=== PATIENT | female | born 1945 | race Caucasian/White ===

== ENCOUNTER 2018-12-05 11:23 | Inpatient (IN) ==
[2018-12-05] MEDS ORDERED: SODIUM CHLORIDE 0.9% 1000ML 2,000 ML IV ONE (11:40)
[2018-12-05] MEDS ORDERED: PIPERACILL/TAZOBAC CONSULT ACTIVE PRN (11:40)
--- NOTE | 2018-12-05 12:11 | XRay Report ---
XR chest 1V portable CLINICAL HISTORY: Sepsis dyspnea COMPARISON STUDY: 11/17/2018 FINDINGS: Developing infiltrate right base combined with a small effusion. Patchy parenchymal infiltr ates left midlung as well as right perihilar region. IMPRESSION: Diffuse bilateral parenchymal infiltrative change. The above report was generated using voice recognition software. It may contain grammatical, syntax or spelling errors. Electronically signed by: Almas Valdez M.D. 12/05/2018 12:09 PM
[2018-12-05 12:30] LABS: Hematocrit (blood only) 31.4 % (37-47); Hemoglobin 10.3 g/dL (12.0-16.0); Mean Corpuscular Hgb Conc 32.8 g/dL (32-36); Mean Corpuscular Volume 86.7 fL (80-100); Nucleated RBC # (auto) 0.26 K/uL (0-0); Nucleated RBC % (auto) 2.8 %; Platelet Count 479 K/uL (130-400); RDW Coefficient of Variation 17.1 % (11.5-14.5); RDW Standard Deviation 53.9 fL (36.4-46.3); Red Blood Count 3.62 M/uL (4.2-5.4)
[2018-12-05 12:47] LABS: Albumin Level 1.9 gm/dl (3.4-5.0); BUN Creatinine Ratio 32.8 (10-20); Calcium 8.8 mg/dl (8.5-10.1); Creatinine Clr Calc Pharmacy 56.8 ml/min; Est GFR (African American) 94.7; Est GFR (Non-African American) 81.7; Potassium 4.8 mmol/L (3.5-5.1)
[2018-12-05] MEDS: PIPERACILLIN/TAZOBACTAM 4.5 GM/120 ML BAG IV ONE ×2 (12:48→12:53)
[2018-12-05 12:50] LABS: Albumin Globulin Ratio 0.4 (0.9-2); Bilirubin,Total 0.4 mg/dl (0.2-1); Globulin 4.5 gm/dl (2.5-4.0); INR 1.2 (0.9-1.1); Partial Thromboplastin Ratio 1.2; Partial Thromboplastin Time 30.9 Seconds (21.0-31.0); Prothrombin Time 11.8 Seconds (9.0-12.0); Total Protein 6.4 gm/dl (6.4-8.2)
[2018-12-05] MEDS ORDERED: CEFEPIME 1,000 MG in SYRINGE 0 ML IV STA (12:53)
[2018-12-05] MEDS: LEVOFLOXACIN/D5W 750 MG/150 ML BAG IV SCH (12:56)
[2018-12-05 12:58] LABS: Basophils # (auto) 0.02 K/uL (0-0.2); Basophils % (auto) 0.2 %; Eosinophils # (auto) 0.03 K/uL (0-0.5); Eosinophils % (auto) 0.3 %; Howell-Jolly Bodies 1+; Immature Granulocytes # (auto) 0.11 K/uL (0.00-0.02); Immature Granulocytes % (auto) 1.2 %; Lymphocytes # (auto) 0.87 K/uL (1.2-3.4); Lymphocytes % (auto) 9.2 %; Monocytes # (auto) 0.08 K/uL (0.11-0.59); Monocytes % (auto) 0.8 %; Neutrophils # (auto) 8.39 K/uL (1.4-6.5); Neutrophils % (auto) 88.3 %
[2018-12-05] MEDS ORDERED: VANCOMYCIN HCL 1,250 MG in SODIUM CHLORIDE 0.9% 500 ML IV ONE (13:15)
[2018-12-05] MEDS ORDERED: VANCOMYCIN CONSULT ACTIVE PRN (13:15)
[2018-12-05] MEDS ORDERED: ACETAMINOPHEN 500 MG TAB PO STA (13:16)
[2018-12-05] MEDS ORDERED: SODIUM CHLORIDE 0.9% 1000ML 1,000 ML IV ONE (13:28)
[2018-12-05] MEDS ORDERED: IOVERSOL 100ml IV PRN (13:43)
--- NOTE | 2018-12-05 13:49 | CT Scan Report ---
CT head/brain wo con CT DOSE: HISTORY: Altered mental status AMS TECHNIQUE: Multiaxial CT images of the head were performed without the use of intravenous contrast. A dose lowering technique was utilized adhering to the principles of ALARA. Comparison: 11/17/2018 Findings: Moderate mucosal thickening left mastoid air cells. Old left occipital infarct. Hyperdensit y within the sulci felt to represent chronic calcification. No new or interval finding. Age-related atrophy and chronic small vessel change. Impression: 1. 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 2. Age-related atrophy and chronic small vessel change. 3. No acute process. 4. Partial opacification left mastoid air cells unchanged from the prior study. The above report was generated using voice recognition software. It may contain grammatical, syntax or spelling errors. Electronically signed by: Almas Valdez M.D. 12/05/2018 1:48 PM
--- NOTE | 2018-12-05 13:53 | CT Scan Report ---
CT angio chest PE protocol CT DOSE: 889.00 mGy.cm HISTORY: Chest pain +dd and cp TECHNIQUE: Multiaxial CT images of the chest were performed following the intravenous administration of contrast to evaluate the pulmonary arteries. Maximal intensity projection images were also obtaine d. A dose lowering technique was utilized adhering to the principles of ALARA. COMPARISON STUDY: None. FINDINGS: Study is positive for bilateral pulmonary emboli. No evidence for a major central or saddle embolus. Right pleural effusion. Diffuse bilateral parenchymal infiltrative change. IMPRESSION: 1. Study is positive for diffuse bilateral pulmonary emboli. 2. No evidence for a major central pulmonary embolus 3. Right pleural effusion. 4. Bilateral diffuse parenchymal infiltrates. The above report was generated using voice recognition software. It may contain grammatical, syntax or spelling errors. Electronically signed by: Almas Valdez M.D. 12/05/2018 1:52 PM
[2018-12-05] MEDS ORDERED: ACETAMINOPHEN 1000 MG/100 ML IV IV ONE (14:02)
[2018-12-05] MEDS ORDERED: metroNIDAZOLE 500 MG/100 ML BAG IV STA (14:24)
--- NOTE | 2018-12-05 15:14 | History & Physical Report ---
Date of Service December 05, 2018 Assessment & Plan (1) Septic shock: Metabolic Encephaloapthy: Likely multifactorial-- Hypoxia, Sepsis, brain mets, Hyponatremia Hypoxia Acute Diffuse B/L pulmonary Emboli B/L diffuse parenchymal infiltrates Right Pleural effusion --CTA: Study is positive for diffuse bilateral pulmonary emboli. No evidence for a major central pulmonary embolus Right pleural effusion. Bilateral diffuse parenchymal infiltrates. 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 Age -related atrophy and chronic small vessel change. No acute process. Partial opacification left mastoid air cells unchanged from the prior study. --lactate levels:3.9 --received IV fluids, Abx in ED --Given H/O Metastatic Ovarian Cancer, recent H/O bowel perforation likely 2/2 mets and intra cranial hemorrhage, discussed in detail with patient's POA/ family and patient. 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 S/P debulking surgery, chemo radiation therapy in 2012 with recurrence in 2018 in the abdominal lymph nodes, S/P Splenectomy, brain metastasis noted in August 21, 2018 --H/O gastric perforation --Patient and family not planning to consider any chemotherapy and are considering Hospice services (Also confirmed on outpatient records) DM II Severe malnutrition Dyslipidemia HTN Hyponatremia Continue home meds as able Code Status: DNI/DNR Disposition: To be determined Palliative care/financial services agent consulted History of Present Illness Chief Complaint: Shortness of Breath Primary Care Provider: Erikjackelyn Delfin Patient is a 73 yr female with complex medication history-- PMH of metastatic ovarian cancer 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 She was also noted to have left cerebellar and parietal lesions with petechial hemorrhages for which she has completed dexamethasone course. Due to gastric perforation and concern for metastatic because she was thought to be not a candidate for chemotherapy in the near future and was discharged to rehab facility. Patient presents from rehab facility with complaints of worsening shortness of breath, tachycardia, fever and was found to be Hypoxic. While in ED patient was found to be hypoxic in 80s and was started on 6 liters of nasal cannula. Patient was also found to be hypotensive with SBP in 70s, tachycardic, tachypnic, lactate level of 3.9, hyponatremic-129, febrile. CTA showed findings suggestive of diffuse bilateral pulmonary emboli, right pleural effusion, bilateral diffuse parenchymal infiltrates. History is limited secondary to patient's mental status. She is alert, awake but oriented to person only. Discussed in detail with patient and patient's family-- POA, Patient's Son about patient's condition. Patient and her family expressed that she would not want any aggressive measures/ treatment and be kept comfortable only. Patient denies any chest pain, dyspnea, abdominal pain when questioned but reports being tired and felt shaky earlier. Allergies Allergy/AdvReac Type Severity Reaction Status Date / Time amoxicillin Allergy Unknown Unverified 12/05/18 12:16 atenolol Allergy Unknown Unverified 12/05/18 12:16 atorvastatin [From Lipitor] Allergy Unknown Unverified 12/05/18 12:16 fenofibrate Allergy Unknown Unverified 12/05/18 12:16 gemfibrozil Allergy Unknown Unverified 12/05/18 12:16 niacin Allergy Unknown Unverified 12/05/18 12:16 [From Niaspan Extended-Release] simvastatin Allergy Unknown Unverified 12/05/18 12:16 Namxihj-Ngn-Lgm Reductase AdvReac Lani Verified 10/25/18 09:34 Inhibitor Cramps Home Medications Home Medications Medication Instructions Recorded Confirmed Type aspirin [Aspir-81] 81 mg PO QAM 10/25/18 11/17/18 History lisinopril 20 mg PO QAM 10/25/18 11/17/18 History magnesium 250 mg PO QAM 10/25/18 11/17/18 History metformin 1,000 mg PO DAILY 10/25/18 11/17/18 History multivitamin 1 cap PO QAM 10/25/18 11/17/18 History spironolactone 25 mg PO QAM 10/25/18 11/17/18 History acetaminophen [Pain Reliever] 1,000 mg PO 11/17/18 History cyanocobalamin (vitamin B-12) 500 mcg PO DAILY 11/17/18 11/17/18 History [Vitamin B-12] oxycodone 5 mg PO PRN 11/17/18 History Past Med/Surg History Medical History Hyperlipidemia Hypertension Diabetes mellitus, type 2 Cancer ovarian cancer 2012 - chemo spleen cancer 2017 - chemo at present- chemo is on hold till arm is fixed. last chemo 09/21/2018 spots on brain - 09/2018 started radiation in [place] last radiation 2017 - still waiting to hear from [place]. 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 and had exploratory lap then spleen was removed 2017, then started chemo again History of total abdominal hysterectomy and bilateral salpingo-oophorectomy History of vascular access device left infusaport Hx of colonoscopy Social History marital status: Current Living Situation: Personal Care Facility Other Information That Helps Us Care for You: No Feels Safe at Home: Yes Safety Concerns: Feels Safe At This Time Smoking Status: Never smoker Do You Dip or Chew Tobacco: No Second Hand Exposure: No Tobacco Cessation Education Requested by Patient: No Hx Alcohol Use: No Hx Substance Use: No Beliefs That Will Affect Care: None Preferred Language: Kiswahili Communication Ability: Effective Labor Employment Associate Required: No Review of Systems All systems reviewed & are unremarkable except as noted in HPI & below Physical Exam 2 Vital Signs (Past 24 Hours): Last Vital Signs Temp 39.7 C H 12/05/18 13:05 Pulse 139 H 12/05/18 14:31 Resp 27 H 12/05/18 14:31 BP 108/56 L 12/05/18 14:31 Pulse Ox 97 12/05/18 14:31 Physical Exam: Physical Exam: Vitals signs as noted above General Appearance:Moderately built, no apparent distress, Ill appearing Head: normocephalic, Atraumatic Eyes: normal inspection, EOMI Neck: supple, Trachea midline Respiratory/Chest: Decreased breath sounds at bases, No accessory muscle use Cardiovascular: S1, S2, No murmur, +Tachycardia Abdomen/GI:Soft, Non tender, Bowel sounds present Extremities/Musculoskelatal:normal inspection, no edema Neurologic/Psych:Alert Awake and oriented to person only, grossly no focal neurological deficits, follows simple commands Skin: normal color, warm, Skin tear on left shoulder Results & Data Laboratory Results Short CBC 12/05/18 Range/Units 12:24 WBC 9.50 (4.8-10.8) K/uL Hgb 10.3 L (12.0-16.0) g/dL Hct 31.4 L (37-47) % Plt Count 479 H (130-400) K/uL BMP 12/05/18 12:24 Sodium 129 L Potassium 4.8 Chloride 99 Carbon Dioxide 23 BUN 24 H Creatinine 0.73 Glucose 150 H Calcium 8.8 Cardiac Enzymes 12/05/18 Range/Units 12:24 Troponin I < 0.015 (0-0.045) ng/ml Liver Function 12/05/18 Range/Units 12:24 Total Bilirubin 0.4 (0.2-1) mg/dl AST 18 (15-37) U/L ALT 19 (12-78) U/L Alkaline Phosphatase 83 (45-117) U/L Albumin 1.9 L (3.4-5.0) gm/dl Diagnostic Findings CT head: 1. 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 2. Age-related atrophy and chronic small vessel change. 3. No acute process. 4. Partial opacification left mastoid air cells unchanged from the prior study. CXR: 1. Study is positive for diffuse bilateral pulmonary emboli. 2. No evidence for a major central pulmonary embolus 3. Right pleural effusion. 4. Bilateral diffuse parenchymal infiltrates. Medications Administered Home Medications Medication Instructions Recorded Confirmed aspirin [Aspir-81] 81 mg PO QAM 10/25/18 11/17/18 lisinopril 20 mg PO QAM 10/25/18 11/17/18 magnesium 250 mg PO QAM 10/25/18 11/17/18 metformin 1,000 mg PO DAILY 10/25/18 11/17/18 multivitamin 1 cap PO QAM 10/25/18 11/17/18 spironolactone 25 mg PO QAM 10/25/18 11/17/18 acetaminophen [Pain Reliever] 1,000 mg PO 11/17/18 cyanocobalamin (vitamin B-12) 500 mcg PO DAILY 11/17/18 11/17/18 [Vitamin B-12] oxycodone 5 mg PO PRN 11/17/18 ECG Additional Comments: EKG: Sinus Rhythm, Premature ventricular complexes, Non specific ST changes
--- NOTE | 2018-12-05 16:44 | Emergency Department Note ---
Entered by Korina Shaver acting as a scribe for Lake Gagnon DO History of Present Illness General Chief complaint: Shortness of Breath/Dyspnea Stated complaint: sob Source: patient and RN notes reviewed Mode of arrival: EMS Limitations: no limitations History of Present Illness Onset (ago): hour(s) 1 Radiation: non-radiation Pain Consistency: + constant Relieved By: + none Exacerbated By: + none Associated symptoms: + weakness and + other (-abdominal pain, +diarrhea) Treatments prior to arrival: other (Oxygen) The patient is a 73 year old female who presents to the Emergency Room with complaints of a persistent fever. She was brought to the ED via EMS from [facility] where she resides. Nursing states she was 70% on room air at [facility], and it took 6L to get her above 90% on NC. The patient denies any shortness of breath or cough. She states "I just feel tired". She reports she developed diarrhea a few days ago and has felt unwell since then. 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 She denies any abdominal pain. She notes she started shaking earlier today with feeling cold. Home Medications Home Medications Medication Instructions Recorded Confirmed Type aspirin [Aspir-81] 81 mg PO QAM 10/25/18 11/17/18 History lisinopril 20 mg PO QAM 10/25/18 11/17/18 History magnesium 250 mg PO QAM 10/25/18 11/17/18 History metformin 1,000 mg PO DAILY 10/25/18 11/17/18 History multivitamin 1 cap PO QAM 10/25/18 11/17/18 History spironolactone 25 mg PO QAM 10/25/18 11/17/18 History acetaminophen [Pain Reliever] 1,000 mg PO 11/17/18 History cyanocobalamin (vitamin B-12) 500 mcg PO DAILY 11/17/18 11/17/18 History [Vitamin B-12] oxycodone 5 mg PO PRN 11/17/18 History Allergies Allergy/AdvReac Type Severity Reaction Status Date / Time amoxicillin Allergy Unknown Unverified 12/05/18 12:16 atenolol Allergy Unknown Unverified 12/05/18 12:16 atorvastatin [From Lipitor] Allergy Unknown Unverified 12/05/18 12:16 fenofibrate Allergy Unknown Unverified 12/05/18 12:16 gemfibrozil Allergy Unknown Unverified 12/05/18 12:16 niacin Allergy Unknown Unverified 12/05/18 12:16 [From Niaspan Extended-Release] simvastatin Allergy Unknown Unverified 12/05/18 12:16 Aylaifn-Ban-Ikt Reductase AdvReac [place] Verified 10/25/18 09:34 Inhibitor Cramps Past Med/Surg History Medical History Hyperlipidemia Hypertension Diabetes mellitus, type 2 Cancer ovarian cancer 2012 - chemo 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 last chemo 09/21/2018 spots on brain - 09/2018 started radiation in [place] last radiation 2017 - still waiting to hear from [place]. 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 and had exploratory lap then spleen was removed 2017, then started chemo again History of total abdominal hysterectomy and bilateral salpingo-oophorectomy History of vascular access device left infusaport Hx of colonoscopy Social History marital status: Current Living Situation: Personal Care Facility Other Information That Helps Us Care for You: No Feels Safe at Home: Yes Safety Concerns: Feels Safe At This Time Smoking Status: Never smoker Do You Dip or Chew Tobacco: No Second Hand Exposure: No Tobacco Cessation Education Requested by Patient: No Hx Alcohol Use: No Hx Substance Use: No Beliefs That Will Affect Care: None Preferred Language: Kinyarwanda Communication Ability: Effective Mica Plate Layer Required: No Review of Systems See HPI for pertinent positives & negatives. and A total of 10 systems reviewed and were otherwise negative Physical Exam Vital Signs Vital Signs - 24 hr 12/05/18 11:27 12/05/18 11:31 12/05/18 11:32 Temperature Temperature Source Sepsis Recent Fever Within 48 Hours Sepsis New/Unexplained Change in Mental Status Sepsis Action Taken by Nursing Pulse Rate 153 H 153 H 154 H Pulse Rate [Finger] Pulse Rhythm [Finger] Pulse Strength [Finger] Respiratory Rate 21 30 H 25 H Respiratory Effort / Characteristics Respiratory Depth Respiratory Pattern Blood Pressure 136/75 150/83 H Blood Pressure [Left Arm] Blood Pressure Mean 95 105 Blood Pressure Mean [Left Arm] Blood Pressure Position [Left Arm] Pulse Oximetry 90 91 92 Oxygen Delivery Method Oxygen Flow Rate 12/05/18 11:34 12/05/18 11:40 12/05/18 11:50 Temperature 36.7 C Temperature Source Oral Sepsis Recent Fever Within 48 Hours Yes Sepsis New/Unexplained Change in Mental Status Yes Sepsis Action Taken by Nursing Physician Notified Pulse Rate 151 H 153 H 154 H Pulse Rate [Finger] 151 H Pulse Rhythm [Finger] Pulse Strength [Finger] Respiratory Rate 34 H 28 H 31 H Respiratory Effort / Characteristics Accessory Muscle Use Labored Respiratory Depth Normal Respiratory Pattern Regular Blood Pressure 150/83 H Blood Pressure [Left Arm] 150/83 H Blood Pressure Mean 105 Blood Pressure Mean [Left Arm] 105 Blood Pressure Position [Left Arm] Pulse Oximetry 82 L 92 94 Oxygen Delivery Method Room Air Oxygen Flow Rate 12/05/18 11:51 12/05/18 12:00 12/05/18 12:01 Temperature Temperature Source Sepsis Recent Fever Within 48 Hours Sepsis New/Unexplained Change in Mental Status Sepsis Action Taken by Nursing Pulse Rate 154 H 153 H Pulse Rate [Finger] Pulse Rhythm [Finger] Pulse Strength [Finger] Respiratory Rate 25 H 33 H Respiratory Effort / Characteristics Respiratory Depth Respiratory Pattern Blood Pressure 113/62 Blood Pressure [Left Arm] Blood Pressure Mean 79 Blood Pressure Mean [Left Arm] Blood Pressure Position [Left Arm] Pulse Oximetry 95 94 93 Oxygen Delivery Method Nasal Cannula Nasal Cannula Oxygen Flow Rate 6 5 12/05/18 12:10 12/05/18 12:20 12/05/18 12:30 Temperature Temperature Source Sepsis Recent Fever Within 48 Hours Sepsis New/Unexplained Change in Mental Status Sepsis Action Taken by Nursing Pulse Rate 147 H 144 H 146 H Pulse Rate [Finger] Pulse Rhythm [Finger] Pulse Strength [Finger] Respiratory Rate 33 H 31 H 33 H Respiratory Effort / Characteristics Respiratory Depth Respiratory Pattern Blood Pressure Blood Pressure [Left Arm] Blood Pressure Mean Blood Pressure Mean [Left Arm] Blood Pressure Position [Left Arm] Pulse Oximetry 96 96 96 Oxygen Delivery Method Nasal Cannula Nasal Cannula Oxygen Flow Rate 5 5 12/05/18 12:40 12/05/18 12:45 12/05/18 12:49 Temperature Temperature Source Sepsis Recent Fever Within 48 Hours Sepsis New/Unexplained Change in Mental Status Sepsis Action Taken by Nursing Pulse Rate 147 H Pulse Rate [Finger] 143 H Pulse Rhythm [Finger] Pulse Strength [Finger] Respiratory Rate 31 H 32 H Respiratory Effort / Characteristics Spontaneous SOB on Exertion Respiratory Depth Normal Respiratory Pattern Regular Blood Pressure Blood Pressure [Left Arm] 93/59 L Blood Pressure Mean Blood Pressure Mean [Left Arm] 70 Blood Pressure Position [Left Arm] Pulse Oximetry 95 96 Oxygen Delivery Method Nasal Cannula Nasal Cannula Oxygen Flow Rate 6 6 12/05/18 12:50 12/05/18 12:51 12/05/18 12:59 Temperature Temperature Source Sepsis Recent Fever Within 48 Hours Sepsis New/Unexplained Change in Mental Status Sepsis Action Taken by Nursing Pulse Rate 144 H 145 H 142 H Pulse Rate [Finger] Pulse Rhythm [Finger] Pulse Strength [Finger] Respiratory Rate 31 H 29 H 33 H Respiratory Effort / Characteristics Respiratory Depth Respiratory Pattern Blood Pressure 93/59 L 99/61 L Blood Pressure [Left Arm] Blood Pressure Mean 70 73 Blood Pressure Mean [Left Arm] Blood Pressure Position [Left Arm] Pulse Oximetry 96 96 96 Oxygen Delivery Method Nasal Cannula Oxygen Flow Rate 6 12/05/18 13:00 12/05/18 13:02 12/05/18 13:05 Temperature 39.7 C H Temperature Source Rectal Sepsis Recent Fever Within 48 Hours Sepsis New/Unexplained Change in Mental Status Sepsis Action Taken by Nursing Pulse Rate 143 H 143 H Pulse Rate [Finger] Pulse Rhythm [Finger] Pulse Strength [Finger] Respiratory Rate 36 H 30 H Respiratory Effort / Characteristics Respiratory Depth Respiratory Pattern Blood Pressure 96/58 L Blood Pressure [Left Arm] Blood Pressure Mean 70 Blood Pressure Mean [Left Arm] Blood Pressure Position [Left Arm] Pulse Oximetry 97 96 Oxygen Delivery Method Nasal Cannula Oxygen Flow Rate 5 12/05/18 13:10 12/05/18 13:52 12/05/18 13:53 Temperature Temperature Source Sepsis Recent Fever Within 48 Hours Sepsis New/Unexplained Change in Mental Status Sepsis Action Taken by Nursing Pulse Rate 140 H Pulse Rate [Finger] Pulse Rhythm [Finger] Pulse Strength [Finger] Respiratory Rate 28 H Respiratory Effort / Characteristics Respiratory Depth Respiratory Pattern Blood Pressure 119/68 Blood Pressure [Left Arm] Blood Pressure Mean 85 Blood Pressure Mean [Left Arm] Blood Pressure Position [Left Arm] Pulse Oximetry 94 100 96 Oxygen Delivery Method Nasal Cannula Nasal Cannula Oxygen Flow Rate 5 5 12/05/18 14:00 12/05/18 14:01 12/05/18 14:10 Temperature Temperature Source Sepsis Recent Fever Within 48 Hours Sepsis New/Unexplained Change in Mental Status Sepsis Action Taken by Nursing Pulse Rate 141 H 142 H 140 H Pulse Rate [Finger] Pulse Rhythm [Finger] Pulse Strength [Finger] Respiratory Rate 31 H 30 H 28 H Respiratory Effort / Characteristics Respiratory Depth Respiratory Pattern Blood Pressure 122/65 Blood Pressure [Left Arm] Blood Pressure Mean 84 Blood Pressure Mean [Left Arm] Blood Pressure Position [Left Arm] Pulse Oximetry 98 99 97 Oxygen Delivery Method Nasal Cannula Nasal Cannula Nasal Cannula Oxygen Flow Rate 5 5 5 12/05/18 14:16 12/05/18 14:20 12/05/18 14:30 Temperature Temperature Source Sepsis Recent Fever Within 48 Hours Sepsis New/Unexplained Change in Mental Status Sepsis Action Taken by Nursing Pulse Rate 140 H 140 H 136 H Pulse Rate [Finger] Pulse Rhythm [Finger] Pulse Strength [Finger] Respiratory Rate 28 H 30 H 28 H Respiratory Effort / Characteristics Respiratory Depth Respiratory Pattern Blood Pressure 114/69 Blood Pressure [Left Arm] Blood Pressure Mean 84 Blood Pressure Mean [Left Arm] Blood Pressure Position [Left Arm] Pulse Oximetry 99 96 97 Oxygen Delivery Method Nasal Cannula Nasal Cannula Nasal Cannula Oxygen Flow Rate 5 5 5 12/05/18 14:31 12/05/18 14:32 12/05/18 14:40 Temperature Temperature Source Sepsis Recent Fever Within 48 Hours Sepsis New/Unexplained Change in Mental Status Sepsis Action Taken by Nursing Pulse Rate 139 H 136 H 135 H Pulse Rate [Finger] Pulse Rhythm [Finger] Pulse Strength [Finger] Respiratory Rate 27 H 23 23 Respiratory Effort / Characteristics Respiratory Depth Respiratory Pattern Blood Pressure 108/56 L Blood Pressure [Left Arm] Blood Pressure Mean 73 Blood Pressure Mean [Left Arm] Blood Pressure Position [Left Arm] Pulse Oximetry 97 95 97 Oxygen Delivery Method Nasal Cannula Nasal Cannula Nasal Cannula Oxygen Flow Rate 5 5 5 12/05/18 14:46 12/05/18 14:50 12/05/18 14:52 Temperature Temperature Source Sepsis Recent Fever Within 48 Hours Sepsis New/Unexplained Change in Mental Status Sepsis Action Taken by Nursing Pulse Rate 136 H 142 H 136 H Pulse Rate [Finger] Pulse Rhythm [Finger] Pulse Strength [Finger] Respiratory Rate 30 H 37 H 29 H Respiratory Effort / Characteristics Respiratory Depth Respiratory Pattern Blood Pressure 77/46 L 102/52 L Blood Pressure [Left Arm] Blood Pressure Mean 56 68 Blood Pressure Mean [Left Arm] Blood Pressure Position [Left Arm] Pulse Oximetry 97 91 94 Oxygen Delivery Method Nasal Cannula Nasal Cannula Nasal Cannula Oxygen Flow Rate 5 5 5 12/05/18 15:00 12/05/18 15:01 12/05/18 15:10 Temperature Temperature Source Sepsis Recent Fever Within 48 Hours Sepsis New/Unexplained Change in Mental Status Sepsis Action Taken by Nursing Pulse Rate 133 H 132 H 130 H Pulse Rate [Finger] Pulse Rhythm [Finger] Pulse Strength [Finger] Respiratory Rate 30 H 26 H 25 H Respiratory Effort / Characteristics Respiratory Depth Respiratory Pattern Blood Pressure 81/50 L Blood Pressure [Left Arm] Blood Pressure Mean 60 Blood Pressure Mean [Left Arm] Blood Pressure Position [Left Arm] Pulse Oximetry 95 95 97 Oxygen Delivery Method Nasal Cannula Nasal Cannula Nasal Cannula Oxygen Flow Rate 5 5 5 12/05/18 15:15 12/05/18 15:20 12/05/18 16:20 Temperature Temperature Source Sepsis Recent Fever Within 48 Hours Sepsis New/Unexplained Change in Mental Status Sepsis Action Taken by Nursing Pulse Rate 129 H 128 H Pulse Rate [Finger] 123 H Pulse Rhythm [Finger] Regular Pulse Strength [Finger] Normal Respiratory Rate 23 24 22 Respiratory Effort / Characteristics Non-Labored Spontaneous Respiratory Depth Normal Respiratory Pattern Regular Blood Pressure 84/49 L Blood Pressure [Left Arm] 94/52 L Blood Pressure Mean 60 Blood Pressure Mean [Left Arm] 66 Blood Pressure Position [Left Arm] Sitting Pulse Oximetry 96 95 97 Oxygen Delivery Method Nasal Cannula Nasal Cannula Nasal Cannula Oxygen Flow Rate 5 5 5 12/05/18 16:35 Temperature 37.9 C H Temperature Source Rectal Sepsis Recent Fever Within 48 Hours Sepsis New/Unexplained Change in Mental Status Sepsis Action Taken by Nursing Pulse Rate Pulse Rate [Finger] Pulse Rhythm [Finger] Pulse Strength [Finger] Respiratory Rate Respiratory Effort / Characteristics Respiratory Depth Respiratory Pattern Blood Pressure Blood Pressure [Left Arm] Blood Pressure Mean Blood Pressure Mean [Left Arm] Blood Pressure Position [Left Arm] Pulse Oximetry Oxygen Delivery Method Oxygen Flow Rate GENERAL: Laying in bed, alert, ill-appearing, well nourished, moderate distress , non-toxic, confused EYE EXAM: normal conjunctiva. OROPHARYNX: no exudate, no erythema, lips, buccal mucosa, and tongue normal and mucous membranes are moist NECK: supple, no nuchal rigidity, no adenopathy, non-tender LUNGS: Diminished breath sounds at the bases. Normal chest wall mechanics HEART: no murmurs, S1 normal and S2 normal ABDOMEN: abdomen soft, non-tender, normo-active bowel, sounds, no masses, no rebound or guarding. BACK: Back is symmetrical on inspection and there is no deformity, no midline tenderness, no CVA tenderness. SKIN: no rashes and no bruising UPPER EXTREMITIES: upper extremities are grossly normal. LOWER EXTREMITIES: No pitting edema. NEURO EXAM: Patient is awake, alert and oriented to person but not place or time. She is following commands. Nonfocal. Cranial nerves II-XII grossly intact. Course ED COURSE: Vital signs were reviewed and showed the patient is hypotensive and tachycardic. The patients medical record was reviewed The above diagnostic studies were performed and reviewed. ED treatments and interventions as stated above. 1135: The patient was evaluated in room B3. A complete history and physical examination was performed. 1406: I discussed the patients case with Dr. Winston, ICU. The patient has been accepted to the ICU and will be further evaluated. 1415: [facility] The patient will be further evaluated. 1420: Upon reevaluation, the patient is resting comfortably. I discussed her case with her family and they would like to keep her comfortable and are agreeable with the plan. 1435: The patient is now comfort measures only. 1450: I reevaluated the patient. Her pressure went down to the 70s, HR is in the 40s, no complaints of pain. Based on the patients age, coexisting illnesses, exam and lab findings the decision to treat as an inpatient was made. The patient remained stable while under my care. The patient will be evaluated for further management. Consultations Consultation #1: I discussed the patients case with Dr. Winston, ICU. The patient has been accepted to the ICU and will be further evaluated. Time: 14:06 Consultation #2: [facility] The patient will be further evaluated. Time: 14:15 Administered Medications Levofloxacin/Dextrose (Levaquin/D5w) 750 mg in 150 mls @ 100 mls/hr IV Q24H WAYNE Stop: 12/07/18 12:59 Last Infusion: 12/05/18 14:26 Dose: 0 mls/hr Admin: 12/05/18 12:56 Dose: 100 mls/hr Ioversol (Optiray 320 100ml) 95 ml IV ONCE PRN PRN Reason: Interaction Checking Stop: 12/09/18 13:42 Last Admin: 12/05/18 13:43 Dose: 95 ml Discontinued Medications Acetaminophen (Tylenol) 1,000 mg PO NOW STA Stop: 12/05/18 13:17 Last Admin: 12/05/18 14:23 Dose: Not Given Acetaminophen (Ofirmev) Confirm Administered Dose 1,000 mg IV .STK-MED ONE Stop: 12/05/18 14:03 Last Admin: 12/05/18 14:04 Dose: 1,000 mg Piperacillin Sod/Tazobactam Sod (Zosyn) 4.5 gm in 120 mls @ 240 mls/hr IV NOW ONE Stop: 12/05/18 12:09 Last Admin: 12/05/18 12:53 Dose: Not Given Sodium Chloride (Nss 1000ml) 2,000 mls @ 999 mls/hr IV .Q2H1M ONE Stop: 12/05/18 13:40 Last Infusion: 12/05/18 14:48 Dose: 0 mls/hr Admin: 12/05/18 12:47 Dose: 999 mls/hr Cefepime HCl 1,000 mg/ Syringe 11.3 mls @ 5.5 mls/min IV NOW STA Stop: 12/05/18 12:55 Last Admin: 12/05/18 14:22 Dose: 5.5 mls/min Vancomycin HCl 1,250 mg/ (Sodium Chloride) 525 mls @ 200 mls/hr IV NOW ONE Stop: 12/05/18 15:52 Last Admin: 12/05/18 15:05 Dose: 200 mls/hr Sodium Chloride (Nss 1000ml) 1,000 mls @ 999 mls/hr IV .Q1H1M ONE Stop: 12/05/18 14:28 Last Infusion: 12/05/18 15:23 Dose: 0 mls/hr Admin: 12/05/18 14:22 Dose: 999 mls/hr Medical Decision Making Differential Diagnosis Differential diagnosis includes etiologies such as sepsis, UTI, pneumonia, metabolic, electrolyte abnormalities, cardiac sources, intracerebral event, toxicologic, neurologic, as well as others were entertained. Medical Records Attestation: I reviewed the patient's medical records. Home Medications Current Medication List: was personally reviewed by me Laboratory Data Attestation: I reviewed the patient's lab results. Result diagrams: 12/05/18 12:24 12/05/18 12:24 Lab Results 12/05/18 12/05/18 12/05/18 Range/Units 12:24 12:24 12:24 WBC 9.50 (4.8-10.8) K/uL RBC 3.62 L (4.2-5.4) M/uL Hgb 10.3 L (12.0-16.0) g/dL Hct 31.4 L (37-47) % MCV 86.7 (80-100) fL MCH 28.5 (25-34) pg MCHC 32.8 (32-36) g/dL RDW Std Deviation 53.9 H (36.4-46.3) fL RDW Coeff of Elizabeth 17.1 H (11.5-14.5) % Plt Count 479 H (130-400) K/uL MPV 9.0 (7.4-10.4) fL Immature Gran % (Auto) 1.2 % Neut % (Auto) 88.3 % Lymph % (Auto) 9.2 % Hayes % (Auto) 0.8 % Eos % (Auto) 0.3 % Baso % (Auto) 0.2 % Immature Gran # (Auto) 0.11 H (0.00-0.02) K/uL Neut # (Auto) 8.39 H (1.4-6.5) K/uL Lymph # (Auto) 0.87 L (1.2-3.4) K/uL Hayes # (Auto) 0.08 L (0.11-0.59) K/uL Eos # (Auto) 0.03 (0-0.5) K/uL Baso # (Auto) 0.02 (0-0.2) K/uL Absolute Nucleated RBC 0.26 H (0-0) K/uL Nucleated RBC % (auto) 2.8 % [place] Bodies 1+ Acanthocytes (Spur) 1+ PT 11.8 (9.0-12.0) Seconds INR 1.2 H (0.9-1.1) APTT 30.9 (21.0-31.0) Seconds PTT Ratio 1.2 Sodium 129 L (136-145) mmol/L Potassium 4.8 (3.5-5.1) mmol/L Chloride 99 (98-107) mmol/L Carbon Dioxide 23 (21-32) mmol/L Anion Gap 7.0 (3-11) BUN 24 H (7-18) mg/dl Creatinine 0.73 (0.6-1.2) mg/dl Est Cr Clr Drug Dosing 56.8 ml/min Est GFR ( Amer) 94.7 Est GFR (Non-Af Amer) 81.7 BUN/Creatinine Ratio 32.8 H (10-20) Glucose 150 H (70-99) mg/dl Lactate (0.4-2.0) mmol/L Calcium 8.8 (8.5-10.1) mg/dl Total Bilirubin 0.4 (0.2-1) mg/dl AST 18 (15-37) U/L ALT 19 (12-78) U/L Alkaline Phosphatase 83 (45-117) U/L Troponin I (0-0.045) ng/ml Total Protein 6.4 (6.4-8.2) gm/dl Albumin 1.9 L (3.4-5.0) gm/dl Globulin 4.5 H (2.5-4.0) gm/dl Albumin/Globulin Ratio 0.4 L (0.9-2) Influenza Type A Ag (Neg) Influenza Type B Ag (Neg) 12/05/18 12/05/18 12/05/18 Range/Units 12:24 12:24 14:25 WBC (4.8-10.8) K/uL RBC (4.2-5.4) M/uL Hgb (12.0-16.0) g/dL Hct (37-47) % MCV (80-100) fL MCH (25-34) pg MCHC (32-36) g/dL RDW Std Deviation (36.4-46.3) fL RDW Coeff of Elizabeth (11.5-14.5) % Plt Count (130-400) K/uL MPV (7.4-10.4) fL Immature Gran % (Auto) % Neut % (Auto) % Lymph % (Auto) % Hayes % (Auto) % Eos % (Auto) % Baso % (Auto) % Immature Gran # (Auto) (0.00-0.02) K/uL Neut # (Auto) (1.4-6.5) K/uL Lymph # (Auto) (1.2-3.4) K/uL Hayes # (Auto) (0.11-0.59) K/uL Eos # (Auto) (0-0.5) K/uL Baso # (Auto) (0-0.2) K/uL Absolute Nucleated RBC (0-0) K/uL Nucleated RBC % (auto) % [place] Bodies Acanthocytes (Spur) PT (9.0-12.0) Seconds INR (0.9-1.1) APTT (21.0-31.0) Seconds PTT Ratio Sodium (136-145) mmol/L Potassium (3.5-5.1) mmol/L Chloride (98-107) mmol/L Carbon Dioxide (21-32) mmol/L Anion Gap (3-11) BUN (7-18) mg/dl Creatinine (0.6-1.2) mg/dl Est Cr Clr Drug Dosing ml/min Est GFR ( Amer) Est GFR (Non-Af Amer) BUN/Creatinine Ratio (10-20) Glucose (70-99) mg/dl Lactate 3.9 H* (0.4-2.0) mmol/L Calcium (8.5-10.1) mg/dl Total Bilirubin (0.2-1) mg/dl AST (15-37) U/L ALT (12-78) U/L Alkaline Phosphatase (45-117) U/L Troponin I < 0.015 (0-0.045) ng/ml Total Protein (6.4-8.2) gm/dl Albumin (3.4-5.0) gm/dl Globulin (2.5-4.0) gm/dl Albumin/Globulin Ratio (0.9-2) Influenza Type A Ag Neg for Influ A (Neg) Influenza Type B Ag Neg for Influ B (Neg) Imaging Data Radiologist's Impression: Radiology results as stated below per my review and the radiologist's interpretation: CT head/brain wo con CT DOSE: HISTORY: Altered mental status AMS TECHNIQUE: Multiaxial CT images of the head were performed without the use of intravenous contrast. A dose lowering technique was utilized adhering to the principles of ALARA. Comparison: 11/17/2018 Findings: Moderate mucosal thickening left mastoid air cells. Old left occipital infarct. Hyperdensity within the sulci felt to represent chronic calcification. No new or interval finding. Age-related atrophy and chronic small vessel change. Impression: 1. 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 2. Age-related atrophy and chronic small vessel change. 3. No acute process. 4. Partial opacification left mastoid air cells unchanged from the prior study. The above report was generated using voice recognition software. It may contain grammatical, syntax or spelling errors. Electronically signed by: Almas Valdez M.D. 12/05/2018 1:[address] angio chest PE protocol CT DOSE: 889.00 mGy.cm HISTORY: Chest pain +dd and cp TECHNIQUE: Multiaxial CT images of the chest were performed following the intravenous administration of contrast to evaluate the pulmonary arteries. Maximal intensity projection images were also obtained. A dose lowering technique was utilized adhering to the principles of ALARA. COMPARISON STUDY: None. FINDINGS: Study is positive for bilateral pulmonary emboli. No evidence for a major central or saddle embolus. Right pleural effusion. Diffuse bilateral parenchymal infiltrative change. IMPRESSION: 1. Study is positive for diffuse bilateral pulmonary emboli. 2. No evidence for a major central pulmonary embolus 3. Right pleural effusion. 4. Bilateral diffuse parenchymal infiltrates. The above report was generated using voice recognition software. It may contain grammatical, syntax or spelling errors. Electronically signed by: Almas Valdez M.D. 12/05/2018 1:52 PM XR chest 1V portable CLINICAL HISTORY: Sepsis dyspnea COMPARISON STUDY: 11/17/2018 FINDINGS: Developing infiltrate right base combined with a small effusion. Patchy parenchymal infiltrates left midlung as well as right perihilar region. IMPRESSION: Diffuse bilateral parenchymal infiltrative change. The above report was generated using voice recognition software. It may contain grammatical, syntax or spelling errors. Electronically signed by: Almas Valdez M.D. 12/05/2018 12:09 PM ECG Data Attestation: I personally reviewed and interpreted this ECG as follows: Indication: SOB/dyspnea Rate (beats per minute): 154 Rhythm: sinus tachycardia Findings: + other (normal axis, poor baseline in lateral leads) and + ST depression (anteriorlateral leads) Blood Pressure Blood Pressure Findings: Low blood pressure MDM Narrative Patient is a 73-year-old female with extensive past medical history including metastatic ovarian cancer to the brain, perforated abdomen which is currently being treated by oral antibiotics who presents the ER febrile tachycardic and hypotensive. Heart rate was in the 150s-160s. Systolic blood pressures dropped intermittently into the 80s. She was febrile at 39.3. Sepsis alert was called. Labs were obtained and showed an anemia of 10. INR was normal. BMP was unremarkable. Lactate was elevated at 4. Troponin was negative. CT head was negative. CTA of the chest shows extensive bilateral PEs with pneumonia and a large effusion. Long conversation with the patient's family. Discussed with the hospitalist and assembly repairer. After an extensive discussion the decision with all parties the decision was made to make the patient a DNR/ DNI. Patient received 3-4 L of IV normal saline, IV cefepime, IV Flagyl, IV Levaquin while in the ER prior to becoming a no code and comfort measures. Patient's family was updated bedside. Heart rate did trend down to the 120s. Systolic BPs increased to the 90s. Temperature did decline as well to 37. Impression & Plan Bilateral pulmonary embolism, Septic shock, Perforated viscus Critical Care Time I have personally spent greater than 75 minutes of critical care time in the direct management of this patient. This includes bedside care, interpretation of diagnostic studies, and testing, discussion with consultants, patient, and family members, and other required patient management activities. This 75 minutes is in excess of all separately billable procedures. Critical Care Time: Yes Total Critical Care Time: 75 Discharge Plan Visit Data Chief Complaint: Shortness of Breath/Dyspnea Stated Complaint: sob ED Provider: [place] Discharge Problem: Bilateral pulmonary embolism, Septic shock, Perforated viscus Patient Disposition: Being Evaluated by Hospitalist Forms Stand Alone Forms: My [employer] Prescriptions Prescriptions: No Action metformin 500 mg Tablet 1,000 mg PO DAILY RF: 0 lisinopril 20 mg Tablet 20 mg PO QAM RF: 0 aspirin [Aspir-81] 81 mg Tablet,Delayed Release (Dr/Ec) 81 mg PO QAM RF: 0 spironolactone 25 mg Tablet 25 mg PO QAM RF: 0 magnesium 250 mg Tablet 250 mg PO QAM RF: 0 multivitamin Capsule 1 cap PO QAM RF: 0 cyanocobalamin (vitamin B-12) [Vitamin B-12] 500 mcg Tablet 500 mcg PO DAILY RF: 0 acetaminophen [Pain Reliever] 500 mg tablet 1,000 mg PO RF: 0 oxycodone 5 mg tablet 5 mg PO PRN (Reason: pain) RF: 0 Referrals Referrals: Jaylyn Lenz MD [Primary Care Provider] - The scribe's documentation has been prepared under my direction and personally reviewed by me in its entirety. I confirm that the note above accurately reflects all work, treatment, procedures, and medical decision making performed by me.
[2018-12-05] MEDS ORDERED: POLYETHYLENE (MIRALAX) 17 GM PACK PO PRN (17:28)
[2018-12-05] MEDS ORDERED: LORazepam 1 MG TAB SL PRN (17:28)
[2018-12-05] MEDS ORDERED: MoRPHine SULFATE 5 MG/0.25 ML UDP PO PRN (17:28)
[2018-12-05] MEDS ORDERED: ONDANSETRON INJ 2 MG/ML 2 ML VIAL IV PRN (17:28)
[2018-12-05] MEDS ORDERED: ATROPINE SULFATE 1% OP SOLN 2 ML BTL SL PRN (17:28)
[2018-12-05] MEDS ORDERED: ACETAMINOPHEN 325 MG TAB PO PRN (17:28)
[2018-12-05] MEDS ORDERED: MoRPHine SULFATE 2 MG/ML CARP IV PRN (17:28)
[2018-12-05] MEDS ORDERED: MoRPHine SULFATE 4 MG/ML 1 ML CARP\\VIAL ONE (20:00)
[2018-12-05] MEDS: DRONABINOL 2.5 MG CAP PO SCH (20:22)
[2018-12-05] MEDS ORDERED: OLANZapine 5 MG TABLET PO SCH (21:00)
[2018-12-06] MEDS: DRONABINOL 2.5 MG CAP PO SCH (07:44)
[2018-12-06] MEDS ORDERED: ASPIRIN 81 MG ECTAB PO SCH (09:00)
[2018-12-06] MEDS ORDERED: PANTOprazole 40 MG TAB PO SCH (09:00)
[2018-12-06] MEDS: LEVOFLOXACIN/D5W 750 MG/150 ML BAG IV SCH (12:18)
--- NOTE | 2018-12-06 13:12 | Palliative Care Consultation ---
Date of Consultation December 06, 2018 Assessment & Plan (1) Comfort measures only status: -73 year old female with PMH metastatic ovarian cancer, s/p multiple surgeries and recent gastric perforation, presented with BL diffuse PE from rehab. Patient has been on steady decline, was not well-enough to continue her chemotherapy prior to this event. Was in hospital recently for a month. Family has decided to transition patient to comfort measures only. -Met with patient, her Skip, son Mahin, KEVYN Porter, and granddaughter. Patient is pleasantly confused and unable to make decisions. However, when presented with plan of comfort measures only, patient was in agreement. -Met with family outside of room. They confirmed that at this point, they are aware of patient's poor prognosis and just want her to be comfortable. -No further lab draws, no abx to be given, no further diagnostic testing. -Discussed patient's regular medications, family would like to discontinue them. Only give comfort medications. -Discussed options for SNF with hospice or home with hospice. Family agreeable and would like some time to decide which option is best for the patient and family. Updated case management. -Continue Roxanol 5mg PO/SL Q3h PRN pain or SOB. Discontinue IV morphine. Patient currently has no pain. -Zofran 4mg PO/SL Q4h PRN nausea. -Lorazepam 0.5mg PO/SL Q4h PRN anxiety/agitation. -Patient dislikes oxygen, but felt better when it was decreased to 2LPM instead of 6. Continue oxygen as tolerated for comfort. -Long discussion with family about what to expect, end of life issues, prognosis , etc. -PPS 30%. Subject to change quickly given patietn's tenuous state and acute illness. -Will continue to follow. (2) Bilateral pulmonary embolism: (3) Septic shock: (4) Ovarian cancer: Laterality: unspecified laterality Qualified Code(s): C56.9 - Malignant neoplasm of unspecified ovary Supervising Physician Co-Signing Physician Notes Chart reviewed, patient seen and examined. Collaborated with COREY Esquivel Multiple family members at bedside including patient's . Patient did not respond to voice or touch due to recent dosing of morphine. PE: No acute distress, patient appears comfortable Respirations: Unlabored CV: Tachycardic Neuro: Sedated Agree with above note, assessment and plan as per COREY Esquivel. Plan is for comfort care, monitor patient over the next 24 hours-considering transfer either to [facility] or home under hospice care. Will continue to follow and provide support to family with medical decision making History of Present Illness Reason for Consultation: Goals of care Requesting Physician: Dr. 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 She was also noted to have left cerebellar and parietal lesions with petechial hemorrhages for which she has completed dexamethasone course. Due to gastric perforation and concern for metastatic because she was thought to be not a candidate for chemotherapy in the near future and was discharged to [facility] for rehab. Prior to that, patient was living at home. She presented to the hospital from SNF for increasing SOB, fever, tachycardia, and hypoxia. Upon arrival in ED, pulse ox was in 80s on room air, she was started on oxygen. CTA chest showed diffuse bilateral pulmonary emboli. No evidence for a major central pulmonary embolus, right pleural effusion. Bilateral diffuse parenchymal infiltrates. CT head showed old left occipital infarct with associated chronic calcification. Age-related atrophy and chronic small vessel change. No acute process. Given patient's history of metastatic cancer and intracranial petechial hemorrhages, treatment for PE difficult. Family was all in agreement that they would like to pursue comfort measures only. Palliative care is consulted. Allergies Allergy/AdvReac Type Severity Reaction Status Date / Time amoxicillin Allergy Unknown Unverified 12/05/18 12:16 atenolol Allergy Unknown Unverified 12/05/18 12:16 atorvastatin [From Lipitor] Allergy Unknown Unverified 12/05/18 12:16 fenofibrate Allergy Unknown Unverified 12/05/18 12:16 gemfibrozil Allergy Unknown Unverified 12/05/18 12:16 niacin Allergy Unknown Unverified 12/05/18 12:16 [From Niaspan Extended-Release] simvastatin Allergy Unknown Unverified 12/05/18 12:16 [id number] Reductase AdvReac [place] Verified 10/25/18 09:34 Inhibitor Cramps Home Medications Home Medications Medication Instructions Recorded Confirmed Type aspirin [Aspir-81] 81 mg PO QAM 10/25/18 11/17/18 History lisinopril 20 mg PO QAM 10/25/18 11/17/18 History magnesium 250 mg PO QAM 10/25/18 11/17/18 History metformin 1,000 mg PO DAILY 10/25/18 11/17/18 History multivitamin 1 cap PO QAM 10/25/18 11/17/18 History spironolactone 25 mg PO QAM 10/25/18 11/17/18 History acetaminophen [Pain Reliever] 1,000 mg PO 11/17/18 History cyanocobalamin (vitamin B-12) 500 mcg PO DAILY 11/17/18 11/17/18 History [Vitamin B-12] oxycodone 5 mg PO PRN 11/17/18 History Patient History Medical History Hyperlipidemia Hypertension Diabetes mellitus, type 2 Cancer ovarian cancer 2012 - chemo 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 last chemo 09/21/2018 spots on brain - 09/2018 started radiation in [place] last radiation 2017 - still waiting to hear from [place]. 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 and had exploratory lap then spleen was removed 2017, then started chemo again History of total abdominal hysterectomy and bilateral salpingo-oophorectomy History of vascular access device left infusaport Hx of colonoscopy Social History marital status: Current Living Situation: Personal Care Facility Other Information That Helps Us Care for You: No Feels Safe at Home: Yes Safety Concerns: Feels Safe At This Time Smoking Status: Never smoker Do You Dip or Chew Tobacco: No Second Hand Exposure: No Tobacco Cessation Education Requested by Patient: No Hx Alcohol Use: No Hx Substance Use: No Beliefs That Will Affect Care: None Preferred Language: Ugandan Communication Ability: Effective Campaign Advisor Required: No Review of Systems Constitutional: no fever and no chills Ear, Nose, Mouth, Throat: no sore throat and no dysphagia Respiratory: no cough and no dyspnea Cardiovascular: no chest pain and no edema Gastrointestinal: + abdominal pain (occasionally, but not at this time); no nausea and no vomiting Neurologic: + confusion (reported by family); no headache(s) Psychiatric: no anxiety Physical Exam 2 Vital Signs (Past 24 Hours): Last Vital Signs Temp 36.2 C L 12/06/18 09:37 Pulse 125 H 12/06/18 11:14 Resp 18 12/06/18 11:14 BP 104/60 12/06/18 11:14 Pulse Ox 91 12/06/18 11:14 Constitutional: + ill appearing (chronically) and comfortable; no acute distress Eyes: PERRL ENMT: Ears: no hearing impairment Neck: normal visual inspection and trachea midline Respiratory: normal respiratory effort, lungs clear to auscultation Auscultation: + diminished lung sounds Cardiovascular: Rate/Rhythm: + tachycardic Heart Sounds: normal S1, normal S2 and + murmur Vessels: dorsalis pedis pulses present; no JVD Extremities : no edema Gastrointestinal (Abdomen): Inspection/Auscultation: abdomen normal to inspection, + abdomen distended (mildy distended, but soft) and normal bowel sounds Percussion/Palpation: abdomen soft; abdomen nontender Skin: no rashes, warm and dry Neurologic: awake and + confused Psychiatric: Orientation: alert and oriented to person; + not oriented to place and + not oriented to time Time Spent Midlevel 105 minutes with >50% of time spent at bedside with patient and family discussing condition, GOC, and EOL issues.
[2018-12-06] MEDS ORDERED: ONDANSETRON 4 MG OD TAB PO PRN (13:51)
[2018-12-06] MEDS ORDERED: MoRPHine SULFATE 5 MG/0.25 ML UDP PO PRN (13:52)
[2018-12-06] MEDS ORDERED: LORazepam 1 MG TAB SL PRN (13:52)
--- NOTE | 2018-12-06 16:42 | Hospitalist Progress Note ---
Date of Service December 06, 2018 Assessment & Plan (1) Septic shock: Metabolic Encephaloapthy: Likely multifactorial-- Hypoxia, Sepsis, brain mets, Hyponatremia Hypoxia Acute Diffuse B/L pulmonary Emboli B/L diffuse parenchymal infiltrates Right Pleural effusion --CTA: Study is positive for diffuse bilateral pulmonary emboli. No evidence for a major central pulmonary embolus Right pleural effusion. Bilateral diffuse parenchymal infiltrates. 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 Age -related atrophy and chronic small vessel change. No acute process. Partial opacification left mastoid air cells unchanged from the prior study. --lactate levels:3.9 --received IV fluids, Abx in ED --Given H/O Metastatic Ovarian Cancer, recent H/O bowel perforation likely 2/2 mets and intra cranial hemorrhage, discussed in detail with patient's POA/ family and patient. 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 S/P debulking surgery, chemo radiation therapy in 2012 with recurrence in 2018 in the abdominal lymph nodes, S/P Splenectomy, brain metastasis noted in August 21, 2018 --H/O gastric perforation --Patient and family not planning to consider any chemotherapy and are considering Hospice services (Also confirmed on outpatient records) --Very poor prognosis --On comfort measures only DM II Severe malnutrition Dyslipidemia HTN Hyponatremia Home meds discontinued Code Status: DNI/DNR Disposition: To be determined Palliative care/office services associate consulted Subjective Patient is seen and examined at bedside Pleasantly confused No distress Denies chest pain, dyspnea Discussed with family and palliaitive care today She is on comfort measures only Physical Exam 2 Vital Signs (Past 24 Hours): Last Vital Signs Temp 36.2 C L 12/06/18 09:37 Pulse 125 H 12/06/18 11:14 Resp 18 12/06/18 11:14 BP 104/60 12/06/18 11:14 Pulse Ox 91 12/06/18 11:14 Physical Exam: Physical Exam: Vitals signs as noted above General Appearance:Moderately built, no apparent distress, Ill appearing Head: normocephalic, Atraumatic Eyes: normal inspection, EOMI Neck: supple, Trachea midline Respiratory/Chest: Decreased breath sounds at bases, No accessory muscle use Cardiovascular: S1, S2, No murmur, +Tachycardia Abdomen/GI:Soft, Non tender, Bowel sounds present Extremities/Musculoskelatal:normal inspection, no edema Neurologic/Psych:Alert Awake and oriented to person only, grossly no focal neurological deficits, follows simple commands Skin: normal color, warm, Skin tear on left shoulder
[2018-12-06] MEDS: MoRPHine SULFATE 5 MG/0.25 ML UDP PO PRN (19:06)
[2018-12-06] MEDS ORDERED: LORazepam 1 MG/2 ML VIAL IV PRN (19:55)
[2018-12-06] MEDS ORDERED: MoRPHine SULFATE 4 MG/ML 1 ML CARP\\VIAL IV PRN (19:56)
[2018-12-07] MEDS: MoRPHine SULFATE 5 MG/0.25 ML UDP PO PRN ×2 (08:26→15:36)
--- NOTE | 2018-12-07 08:49 | Palliative Care Progress Note ---
Date of Service December 07, 2018 Assessment & Plan (1) Comfort measures only status: -73 year old female with PMH metastatic ovarian cancer, s/p multiple surgeries and recent gastric perforation, presented with BL diffuse PE from rehab. She is comfort measures only status. -Met with patient, son Mahin, KEVYN Porter, and Dr. Begum. -Patient is more sedate and confused today, but stable for transfer home on hospice. -Hospice is meeting with family here at hospital at 1100. Possible transport this afternoon/evening. -Will DC IV morphine. Continue Roxanol 5mg Q2h as needed. -Lorazepam 0.5mg PO/SL Q4h PRN anxiety/agitation. -Continue oxygen for comfort. -Discussion with family about what to expect, end of life issues, prognosis, etc. -PPS 20%. Subject to change quickly given patient's tenuous state and acute illness. -Will continue to follow. (2) Bilateral pulmonary embolism: (3) Septic shock: (4) Ovarian cancer: Subjective Met with patient, her son Mahin, [id number] [place], along with Dr. Begum. Patient is a little more sedate today, but is awake and in no distress. She appears quite comfortable, no labored breathing, heart rate is still a little tachycardic. NO facial grimacing or signs of agitation. Patient's son and KEVYN state that patient's is nervous about taking her home. Hospice equipment is being delivered today, then meeting with hospice at 1100 in patient's room. Review of Systems Unobtainable due to cognitive status Physical Exam 2 Vital Signs (Past 24 Hours): Last Vital Signs Temp 36.2 C L 12/06/18 09:37 Pulse 115 H 12/07/18 06:20 Resp 18 12/07/18 06:20 BP 104/60 12/06/18 11:14 Pulse Ox 92 12/07/18 06:20 Constitutional: + ill appearing (chronically) and comfortable; no acute distress Eyes: PERRL ENMT: Ears: no hearing impairment Neck: normal visual inspection and trachea midline Respiratory: normal respiratory effort, lungs clear to auscultation Auscultation: + diminished lung sounds Cardiovascular: Rate/Rhythm: + tachycardic Heart Sounds: normal S1, normal S2 and + murmur Vessels: dorsalis pedis pulses present; no JVD Extremities : no edema Gastrointestinal (Abdomen): Inspection/Auscultation: abdomen normal to inspection, + abdomen distended (mildy distended, but soft) and normal bowel sounds Percussion/Palpation: abdomen soft; abdomen nontender Skin: no rashes, warm and dry Neurologic: + confused Psychiatric: Orientation: oriented to person; + not oriented to place and + not oriented to time Time Spent Midlevel 35 minutes with >50% of time spent at bedside with patient and family discussing hospice care and EOL issues. _ (1) Ovarian cancer Laterality: unspecified laterality Qualified Code(s): C56.9 - Malignant neoplasm of unspecified ovary
--- NOTE | 2018-12-07 12:47 | Discharge Summary ---
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 She was also noted to have left cerebellar and parietal lesions with petechial hemorrhages for which she has completed dexamethasone course. Due to gastric perforation and concern for metastatic because she was thought to be not a candidate for chemotherapy in the near future and was discharged to rehab facility. Patient presents from rehab facility with complaints of worsening shortness of breath, tachycardia, fever and was found to be Hypoxic. While in ED patient was found to be hypoxic in 80s and was started on 6 liters of nasal cannula. Patient was also found to be hypotensive with SBP in 70s, tachycardic, tachypnic, lactate level of 3.9, hyponatremic-129, febrile. CTA showed findings suggestive of diffuse bilateral pulmonary emboli, right pleural effusion, bilateral diffuse parenchymal infiltrates. History is limited secondary to patient's mental status. She is alert, awake but oriented to person only. Discussed in detail with patient and patient's family-- POA, Patient's Son about patient's condition. Patient and her family expressed that she would not want any aggressive measures/ treatment and be kept comfortable only. Patient denies any chest pain, dyspnea, abdominal pain when questioned but reports being tired and felt shaky earlier. Admission Exam Per Admitting Provider Temp 39.7 C H 12/05/18 13:05 Pulse 139 H 12/05/18 14:31 Resp 27 H 12/05/18 14:31 BP 108/56 L 12/05/18 14:31 Pulse Ox 97 12/05/18 14:31 Physical Exam: Physical Exam: Vitals signs as noted above General Appearance:Moderately built, no apparent distress, Ill appearing Head: normocephalic, Atraumatic Eyes: normal inspection, EOMI Neck: supple, Trachea midline Respiratory/Chest: Decreased breath sounds at bases, No accessory muscle use Cardiovascular: S1, S2, No murmur, +Tachycardia Abdomen/GI:Soft, Non tender, Bowel sounds present Extremities/Musculoskelatal:normal inspection, no edema Neurologic/Psych:Alert Awake and oriented to person only, grossly no focal neurological deficits, follows simple commands Skin: normal color, warm, Skin tear on left shoulder Principal Diagnosis B/L PE from Cancer Septic Shock POA CKD 3 Ovarian CA HLD HTN DM II Discharge Exam ROS-Offers no history, Lethargic Physical Exam Gen- NAD, Afebrile, Lethargic, Terminal Head-NCAT, EOMI, PERRLA, Anicteric Sclera, No Posterior Pharyngeal Erythema Neck-Supple, No JVD, No Thyromegaly, No Masses, No LAD, No Bruits Lungs-Clear to Auscultation Bilaterally, No Rales, No Rhonchi, No Wheezing, No Crepitus Chest-No S4, +S1, +S2, No S3, No Murmurs, No Rubs, No Gallops, No Ectopy Abdomen-Soft, Bowel Sounds Present, Non Tender, Non Distended, No Hepatomegaly, No Splenomegaly, No Palpable Masses, No Rebound, No Rigidity, No Guarding Musculoskeletal-Full Range of Motion Bilaterally, No CVAT Extremities-No Cyanosis, No Clubbing, No Edema Nuero-Cranial Nerves II-XII grossly intact, Motor WNL, DTRs WNL, Strength WNL, No Focal Psych-Somnolent Discharge Data Allergies Allergy/AdvReac Type Severity Reaction Status Date / Time amoxicillin Allergy Unknown Unverified 12/05/18 12:16 atenolol Allergy Unknown Unverified 12/05/18 12:16 atorvastatin [From Lipitor] Allergy Unknown Unverified 12/05/18 12:16 fenofibrate Allergy Unknown Unverified 12/05/18 12:16 gemfibrozil Allergy Unknown Unverified 12/05/18 12:16 niacin Allergy Unknown Unverified 12/05/18 12:16 [From Niaspan Extended-Release] simvastatin Allergy Unknown Unverified 12/05/18 12:16 Aozzumt-Ulc-Xeu Reductase AdvReac [place]clie Verified 10/25/18 09:34 Inhibitor Cramps Consultations 12/05/18 13:15 ED Decision to Admit Stat 12/05/18 17:28 Consult Case Management - Discharge Planning Routine Consult Palliative Care Routine Current Diagnoses Sepsis, unspecified organism (12/05/18) Malignant neoplasm of unspecified ovary (12/05/18) Other pulmonary embolism without acute cor pulmonale (12/05/18) Severe sepsis with septic shock (12/05/18) Encounter for palliative care (12/05/18) Allergies amoxicillin Allergy (Unverified 12/05/18 12:16) Unknown atenolol Allergy (Unverified 12/05/18 12:16) Unknown atorvastatin [From Lipitor] Allergy (Unverified 12/05/18 12:16) Unknown fenofibrate Allergy (Unverified 12/05/18 12:16) Unknown gemfibrozil Allergy (Unverified 12/05/18 12:16) Unknown niacin [From Niaspan Extended-Release] Allergy (Unverified 12/05/18 12:16) Unknown simvastatin Allergy (Unverified 12/05/18 12:16) Unknown Nktigsw-Win-Srg Reductase Inhibitor Adverse Reaction (Verified 10/25/18 09:34) Musclie Cramps Height/Weight/Isolation Height 5 ft 3 in Weight 57 kg Microbiology 12/05/18 12:25 Blood Blood Culture - Preliminary No growth to date. 12/05/18 12:24 Blood Blood Culture - Preliminary No growth to date. Ordered Studies 12/05/18 11:42 CT angio chest PE protocol Stat 12/05/18 13:16 CT head/brain wo con Stat Hospital Course (1) Septic shock: Metabolic Encephaloapthy: multifactorial-- Hypoxia, Sepsis, brain mets, Hyponatremia, and Hypoxia Acute Diffuse B/L pulmonary Emboli B/L diffuse parenchymal infiltrates Right Pleural effusion --CTA: Study is positive for diffuse bilateral pulmonary emboli. No evidence for a major central pulmonary embolus Right pleural effusion. Bilateral diffuse parenchymal infiltrates. 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 Age -related atrophy and chronic small vessel change. No acute process. Partial opacification left mastoid air cells unchanged from the prior study. --lactate levels:3.9 --received IV fluids, Abx in ED --Given H/O Metastatic Ovarian Cancer, recent H/O bowel perforation likely 2/2 mets and intra cranial hemorrhage, discussed in detail with patient's POA/ family and patient. 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 S/P debulking surgery, chemo radiation therapy in 2013 with recurrence in 2018 in the abdominal lymph nodes, S/P Splenectomy, brain metastasis noted in August 21, 2018 --H/O gastric perforation --Terminal --On comfort measures only DM II Severe malnutrition Dyslipidemia HTN Hyponatremia Home meds discontinued Code Status: DNI/DNR Disposition: DC Home c Home Hospice Total Time Total Time Spent Total Time Spent (In Minutes): 45 mins Total Time Includes: Examination of the Patient, Discharge Planning, Medication Reconciliation and Communication With Other Providers Discharge Plan Discharge Items Patient Disposition: Hospice - Home Reason For Visit: PULMONARY EMBOLISM Discharge Diagnosis: B/L PE from Cancer Septic Shock POA CKD 3 Ovarian CA HLD HTN DM II Discharge Goals: Decrease discomfort Activity: As commented below Activity Comment: Bedrest Lifting: None Non-emergency contact: Primary Care Provider and Oncologist Call non-emergency contact if: you have any medication questions Diet: Regular Diet Texture: Pureed (blended smooth) Liquid Consistency: Honey thick Other Ambulatory Orders: Morphine (Routine) Location: Determined by Patient Ordered By: Dakota Begum Addtl Provider Instructions: Home Hospice Prescriptions: New morphine 10 mg/5 mL solution 10 mg PO Q4H PRN (Reason: pain) Qty: 200 RF: 0 Continue lisinopril 20 mg Tablet 20 mg PO QAM RF: 0 aspirin [Aspir-81] 81 mg Tablet,Delayed Release (Dr/Ec) 81 mg PO QAM RF: 0 spironolactone 25 mg Tablet 25 mg PO QAM RF: 0 acetaminophen [Pain Reliever] 500 mg tablet 1,000 mg PO RF: 0 oxycodone 5 mg tablet 5 mg PO PRN (Reason: pain) RF: 0 Discontinued metformin 500 mg Tablet 1,000 mg PO DAILY RF: 0 magnesium 250 mg Tablet 250 mg PO QAM RF: 0 multivitamin Capsule 1 cap PO QAM RF: 0 cyanocobalamin (vitamin B-12) [Vitamin B-12] 500 mcg Tablet 500 mcg PO DAILY RF: 0 Stand-Alone Forms: [facility] Discharge Orders: Discharge Order (Routine); Ordered 12/07/18 Ordered By: Dakota Begum Admission Data Admit Date/Time: 12/05/18 14:56 Attending Provider: Dakota Begum Admit Provider: Mehul Rangel Primary Care Provider: Jaylyn Lenz Other Providers: Mehul Rangel ; Brandi Naidu Service: Medical Other Interventions: Discharge Summary Assessment (RN) Last Done: 12/07/18 13:59 DC Date/Time DO NOT enter until pt leaves facility: 12/07/18 15:51
[2018-12-08] MEDS ORDERED: METFORMIN HCL ER 500 MG TABCR PO SCH (15:30)
== END 2018-12-07 15:51 | disposition hospice, home (50) | DRG 951 ==
LOC: ED 11:23 → SUATTDRO 14:56 → 4E 14:56